=== PATIENT | female | born 1970 | race Caucasian/White ===

== ENCOUNTER 2016-06-01 10:35 | Emergency (ER) | payer OTHER ==
[2016-06-01] MEDS ORDERED: KETOROLAC 30 MG/ML 1 ML VIAL IVP STA (11:08)
[2016-06-01] MEDS ORDERED: MAG HYDROX/AL HYDROX/SIMETH 30 ML, HYOSCYAMINE ELIXIR 10 ML, CIMETIDINE HCL 300 MG, LID... PO STA ×4 (11:08)
--- NOTE | 2016-06-01 11:35 | XR ---
EXAMINATION TYPE: XR chest 2V DATE OF EXAM ORDERED: 06/01/2016 11:24 AM HISTORY: Pain. REFERENCE: None. FINDINGS: The lungs are clear. Pleural spaces are clear. Heart size is normal. IMPRESSION: NORMAL CHEST.
[2016-06-01 11:38] LABS: Basophils % (A) 1 %; CH 33.3; Eosinophils # (A) 0.1 k/uL (0-0.7); Eosinophils % (A) 2 %; HCT 40.1 % (34.0-46.0); HDW 2.94; HGB 13.8 gm/dL (11.4-16.0); Luc % (Auto) 3; Lymphocytes # (A) 1.9 k/uL (1.0-4.8); Lymphocytes % (A) 30 %; MCHC 34.4 g/dL (31.0-37.0); MCV 92.9 fL (80.0-100.0); Mean Platelet Volume 7.5; Monocytes # (A) 0.4 k/uL (0-1.0); Monocytes % (A) 5 %; Neutrophils # (A) 3.8 k/uL (1.3-7.7); Neutrophils % (A) 59 %; RBC 4.32 m/uL (3.80-5.40); WBC 6.5 k/uL (3.8-10.6); WBC (Perox) 6.54
[2016-06-01 11:48] LABS: ALT 80 U/L (9-52); AST 67 U/L (14-36); Alkaline Phosphatase 88 U/L (38-126); Anion Gap 13 mmol/L; Blood Urea Nitrogen 13 mg/dL (7-17); Calcium 9.8 mg/dL (8.4-10.2); Carbon Dioxide 24 mmol/L (22-30); Chloride 104 mmol/L (98-107); Glucose 110 mg/dL (74-99); Magnesium 1.6 mg/dL (1.6-2.3); Non-African American GFR(MDRD) >60 (>60 ml/min/1.73 sqM); Potassium 4.1 mmol/L (3.5-5.1); Sodium 141 mmol/L (137-145); Total Bilirubin 0.6 mg/dL (0.2-1.3); Total Protein 7.1 g/dL (6.3-8.2)
--- NOTE | 2016-06-01 11:50 | ED ---
Chest Pain HPI - General Chief Complaint: Chest Pain Stated Complaint: High blood pressure/chest heavy Time Seen by Provider: 06/01/16 11:03 Source: patient Mode of arrival: wheelchair Limitations: no limitations - History of Present Illness Initial Comments: This is a 45-year-old female with a history of hypertension or presents here in [facility] for chest pain. She states it is right-sided and constant. It is been present since last night and has not resolved since then. She states that it feels like an aching sensation in her right chest. She denies any cough or shortness of breath. The pain is not pleuritic and does not radiate. It is not associated with exertion. She does have a h/o GERD and thought it could be that but since it has been a few days she became worried. She states that her BP has been in the 150/80s and was concerned. She denies h/o DVT/PE. No other complaints. This patient is low risk for PE because he/she has met the following criteria Age <50 years HR <100 bpm Room Air SpO2 >95% No prior DVT/PE No recent trauma/surgery No hemoptysis No exogenous estrogen use No clinical signs of DVT - Related Data Home Medications Medication Instructions Recorded Confirmed Lisinopril [Zestril] 10 mg PO QAM 05/24/14 06/01/16 Multivitamins, Thera [Theragran] 1 tab PO DAILY 05/24/14 06/01/16 Omeprazole [PriLOSEC] 20 mg PO AC-BRKFST 05/24/14 06/01/16 Sucralfate [Carafate] 1 gm PO QAM 05/24/14 06/01/16 Zolpidem [Ambien] 5 mg PO HS 04/03/15 06/01/16 Allergies Allergy/AdvReac Type Severity Reaction Status Date / Time Sulfa (Sulfonamide AdvReac Unknown Nausea & Verified 06/01/16 11:08 Antibiotics) Vomiting Review of Systems ROS Statement: Those systems with pertinent positive or pertinent negative responses have been documented in the HPI. ROS Other: All systems not noted in ROS Statement are negative. 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 History of Any Multi-Drug Resistant Organisms: None Reported Past Surgical History: Breast Surgery, Section, Orthopedic Surgery, Tubal Ligation Additional Past Surgical History / Comment(s): BREAST IMPLANTS, LAPAROSCOPY,RT ELBOW, D&C Past Anesthesia/Blood Transfusion Reactions: No Reported Reaction Past Psychological History: No Psychological Hx Reported Smoking Status: Never smoker Past Alcohol Use History: Occasional Past Drug Use History: None Reported - Past Family History Mother Family Medical History: Hypertension, Seizure Disorder Additional Family Medical History / Comment(s): ULCERATIVE COLITIS Father Family Medical History: No Reported History Brother(s) Family Medical History: Diabetes Mellitus General Exam - General Exam Comments Initial Comments: Awake alert Appears comfortable Head: Normocephalic atraumatic Eyes: no conjunctival injection No scleral icterus EOMI Neck: No JVD Supple Heart: Regular rate rhythm normal S1-S2 no murmurs Lungs: Clear to auscultation bilaterally No wheezing No rales Abdomen: Soft nondistended nontender Extremities: Non edematous DP pulses intact Radial pulses intact Neuro: A&Ox3 No focal neurologic deficits Psych: Appropriate mood and affect[Awake alert] [Appears comfortable] Limitations: no limitations Course Vital Signs 06/01/16 06/01/16 06/01/16 10:41 11:41 11:47 Temperature 98.3 F Pulse Rate 73 67 67 Respiratory 18 18 18 Rate Blood Pressure 142/90 156/98 146/91 O2 Sat by Pulse 100 100 99 Oximetry 06/01/16 06/01/16 12:31 12:34 Temperature 98.8 F Pulse Rate 55 L Respiratory 16 Rate Blood Pressure 147/91 O2 Sat by Pulse 100 Oximetry - Reevaluation(s) Reevaluation #1: 06/01/16 11:44 EKG showing normal sinus rhythm with a rate of 64. No systemic changes or T- wave inversions. QTC is 418. Other intervals are normal. No ectopy. Chest Pain MDM - MDM Is a 45-year-old female who presents emergency department for chest discomfort. The patient was evaluated with troponin and EKG were both of which were normal. Her symptoms have been constant for over 12 hours and thus there any cardiac ischemia I would see it on blood work. She felt improved after GI cocktail and Toradol. At this time the patient has a low heart score and to follow-up as an outpatient for further workup for chest pain. I told her to continue with her GI medications and take Motrin and Tylenol as needed for pain. She can return to the emergency Department if she has worsening or changing symptoms. All questions were answered. Disposition Clinical Impression: Chest pain Disposition: HOME SELF-CARE Condition: Stable Instructions: Chest Pain (ED) Referrals: Sebastian Matos MD [Primary Care Provider] - 1-2 days
[2016-06-01 11:52] LABS: Prothrombin Time 10.3 sec (9.0-12.0)
[2016-06-01 12:32] VITALS: BP 147/91; PULSE 55; RESP 16
[2016-06-01 12:35] VITALS: TEMP 98.8
== END 2016-06-01 12:40 | disposition home or self-care (01) ==
LOC: EC 10:35
DX: R07.89 Other chest pain (principal); I10 Essential (primary) hypertension; K21.9 Gastro-esophageal reflux disease without esophagitis; Z79.899 Other long term (current) drug therapy; Z88.2 Allergy status to sulfonamides
CPT/HCPCS: 99285 ×2; 96374 ×2; 36415; 93005; 80053; 82553; 83735; 84484; 85025; 85610; 85730; 71020; J1885

== ENCOUNTER → 2017-03-09 | Outpatient (CLI) | payer OTHER ==
--- NOTE | 2017-03-10 08:04 | MM ---
Reason for exam: screening (asymptomatic). Last mammogram was performed 5 years and 3 months ago. History: Retro-pectoral implants in both breasts, 2000. Physical Findings: A clinical breast exam by your physician is recommended on an annual basis and results should be correlated with mammographic findings. MG 3D Screen Mammo Imp/Cad Bilateral CC, MLO, and ID view(s) were taken. Prior study comparison: December 03, 2011, CAD bilateral diagnostic mammogram. The breast tissue is heterogeneously dense. This may lower the sensitivity of mammography. Finding: There is a 4 mm mass located 2 cm from the nipple in the anterior position of the left breast. Bilateral breast prothesis. New finding since December 03, 2011. ASSESSMENT: Incomplete: need additional imaging evaluation, BI-RAD 0 RECOMMENDATION: Ultrasound of the left breast. [facility] will attempt to contact patient to return for ultrasound.
== END | disposition home or self-care (01) ==
LOC: RADMAMWWP 09:36
PROVIDERS: ATTEND Obstetrics & Gynecology
DX: Z12.31 Encounter for screening mammogram for malignant neoplasm of breast (principal); Z98.82 Breast implant status
CPT/HCPCS: 77063; 77067

== ENCOUNTER → 2017-03-11 | Outpatient (CLI) | payer OTHER ==
--- NOTE | 2017-03-14 07:36 | USB ---
Reason for exam: additional evaluation requested from abnormal screening. History: Retro-pectoral implants in both breasts, 2000. Physical Findings: Nurse did not find any significant physical abnormalities on exam. US Breast Workup Limited LT Left breast ultrasound includes all four quadrants, the retroareolar region and axilla. Finding demonstrates a 6 x 2 x 5mm lobular, cystic lesion at 10 o'clock and a 5 x 4 x 4mm lobular, mixed lesion at 11 o'clock. These results were verbally communicated with the patient and result sheet given to the patient on 03/11/17. ASSESSMENT: Probably benign, BI-RAD 3 RECOMMENDATION: Ultrasound of the left breast in 6 months.
== END | disposition home or self-care (01) ==
LOC: RADUSWWP 14:13
PROVIDERS: ATTEND Obstetrics & Gynecology
DX: R92.8 Other abnormal and inconclusive findings on diagnostic imaging of breast (principal)

== ENCOUNTER → 2017-10-04 | Outpatient (CLI) | payer OTHER ==
--- NOTE | 2017-10-05 15:12 | USB ---
Reason for exam: follow-up at short interval from prior study. History: Retro-pectoral implants in both breasts, 2000. Physical Findings: Nurse did not find any significant physical abnormalities on exam. US Breast LT Left complete breast ultrasound includes all four quadrants, the retroareolar region and axilla. Finding demonstrates a 0.7 x 0.3 x 0.2cm oval, cystic cluster at 10 o'clock versus 5 x 4 x 4mm previously, a 0.5 x 0.3 x 0.2cm oval, mixed lesion at 11 o'clock, a 0.3 x 0.3 x 0.2cm oval, cystic lesion at 11:30, a 0.5 x 0.5 x 0.1cm oval, cystic lesion at 11 o'clock and a 0.4 x 0.4 x 0.2cm oval, cystic cluster at 11:30, likely fibrocystic changes. Underlying breast implant. Some focal fluid along the medial implant could represent a fold or some leaking fluid. These results were verbally communicated with the patient and result sheet given to the patient on 10/04/17. ASSESSMENT: Probably benign, BI-RAD 3 RECOMMENDATION: Follow-up diagnostic mammogram of both breasts in 6 months. (left total 1 year follow up) Manage patient on a clinical basis to ensure continued integrity of the left implant.
== END | disposition home or self-care (01) ==
LOC: RADUSWWP 09:12
PROVIDERS: ATTEND Obstetrics & Gynecology
DX: R92.8 Other abnormal and inconclusive findings on diagnostic imaging of breast (principal)

== ENCOUNTER 2017-12-27 10:08 | Day surgery (SDC) | payer OTHER ==
[2017-12-23 11:01] VITALS: BMI 24.0
[2017-12-27 10:59] VITALS: TEMP 98.6
[2017-12-27] MEDS ORDERED: LIDOCAINE 1% 20 ML VIAL (10MG/ML) FOR IV START INTRADERMA ONE (11:08)
[2017-12-27] MEDS ORDERED: LACTATED RINGERS 1,000 ML IV ONE (11:08)
[2017-12-27] MEDS ORDERED: PROPOFOL 10 MG/ML 20 ML VIAL IV ONE (11:53)
--- NOTE | 2017-12-27 12:36 | P.PCN ---
Date of Procedure: 12/27/17 Procedure(s) Performed: procedure: 1. Esophagogastroduodenoscopy and biopsy. 2. Colonoscopy and biopsy. Preoperative diagnosis: Chronic reflux symptoms and diarrhea. Postoperative diagnosis: 1. Hiatal hernia with no evidence of esophagitis or complicated reflux disease. 2. Mild antral gastritis. 3. Normal colon and terminal ileum. 4. Multiple biopsies obtained from the duodenum, antrum, esophagus, terminal ileum and right colon. Preparation: HalfLytely prep. Sedation: Was provided by anesthesia. Brief clinical history: The patient is a 47-year-old female who has been troubled with diarrhea since October 15. The patient was having cramps followed by diarrhea. Stool studies were negative. Her mother had colitis. No definite dietary triggers. She has chronic reflux symptoms and currently is doing well on Zantac that she takes as needed. She has taken probiotics with gradual improvement in her diarrhea. This evaluation is to assess for complicated complicated reflux disease, celiac disease or inflammatory bowel disease. Procedure: With the patient on her left lateral decubitus position and after informed consent and adequate sedation, I passed the Olympus-GIF 160 video upper endoscope through the cricopharyngeus down the esophagus. GE junction was around 32 cm from the incisors and there was a sliding hiatal hernia but no obvious esophagitis or complicated reflux disease. The endoscope was then passed into the stomach which was insufflated with air and inspected in detail including the retroflex view in the cardia. There was some mottling and erythema but no ulcers or erosions. Pyloric channel, duodenal bulb, post bulbar area and descending duodenum was essentially within normal limits. Because of her symptoms, I obtained biopsies from the duodenum, antrum and esophagus then the endoscope was withdrawn and I proceeded with the colonoscopy. Perianal area did not show any fissures or fistulas. There were no masses felt on digital rectal examination. The Olympus CFQ 160L video colonoscope was then inserted in the rectum in the usual fashion and advanced to the cecum. I intubated the ileocecal bile and examined the terminal ileum. Terminal ileum and colon appeared healthy with no edema, erythema, friability, ulceration, exudation or spontaneous bleeding. No polyps or tumors were seen or any obvious diverticular disease. I obtained biopsies from the terminal ileum and right colon then I retroflexed the endoscope in the rectum before the endoscope was withdrawn. The patient tolerated the procedure well. Plan: The patient was reassured. Will await biopsy results and make further plans based on her course and biopsy results. We will keep you updated on her progress.
[2017-12-27 12:38] VITALS: RESP 16
[2017-12-27 12:45] VITALS: BP 128/80; PULSE 65
== END 2017-12-27 12:59 | disposition home or self-care (01) ==
LOC: ORWHC2ENDO 10:08
DX: K29.50 Unspecified chronic gastritis without bleeding (principal); K21.0 Gastro-esophageal reflux disease with esophagitis; K52.839 Microscopic colitis, unspecified; E78.5 Hyperlipidemia, unspecified; K44.9 Diaphragmatic hernia without obstruction or gangrene; Z88.2 Allergy status to sulfonamides; I10 Essential (primary) hypertension; Z79.899 Other long term (current) drug therapy
CPT/HCPCS: 88305; 88313; 45380; 43239; J2704

== ENCOUNTER → 2018-03-10 | Outpatient (CLI) | payer OTHER ==
--- NOTE | 2018-03-10 10:44 | MM ---
Reason for exam: additional evaluation requested from prior study. Last mammogram was performed 1 year ago. History: Retro-pectoral implants in both breasts, 2000. Physical Findings: Nurse did not find any significant physical abnormalities on exam. MG 3D Diag Mammo Imp W/Cad ELIE Bilateral CC, MLO, and ID view(s) were taken. Prior study comparison: March 09, 2017, bilateral MG 3d screen mammo imp/cad. December 03, 2011, CAD bilateral diagnostic mammogram. The breast tissue is heterogeneously dense. This may lower the sensitivity of mammography. No suspicious calcifications are seen. Bilateral implants are intact. These results were verbally communicated with the patient and result sheet given to the patient on 03/10/18. ASSESSMENT: Benign, BI-RAD 2 RECOMMENDATION: Routine screening mammogram of both breasts in 1 year.
== END | disposition home or self-care (01) ==
LOC: RADMAMWWP 09:29
PROVIDERS: ATTEND Obstetrics & Gynecology
DX: R92.8 Other abnormal and inconclusive findings on diagnostic imaging of breast (principal)
CPT/HCPCS: 77062; 77066

== ENCOUNTER → 2019-04-11 | Outpatient (CLI) | payer OTHER ==
--- NOTE | 2019-04-12 13:46 | MM ---
Reason for exam: screening (asymptomatic). Last mammogram was performed 1 year and 1 month ago. History: Retro-pectoral implants in both breasts, 2000. Physical Findings: A clinical breast exam by your physician is recommended on an annual basis and results should be correlated with mammographic findings. MG 3D Screen Mammo Imp/Cad Bilateral CC, MLO, and ID view(s) were taken. Prior study comparison: March 10, 2018, bilateral MG 3d diag mammo imp w/cad ELIE. March 09, 2017, bilateral MG 3d screen mammo imp/cad. The breast tissue is heterogeneously dense. This may lower the sensitivity of mammography. No suspicious abnormality. Bilateral retropectoral saline implants. No significant changes when compared with prior studies. ASSESSMENT: Negative, BI-RAD 1 RECOMMENDATION: Routine screening mammogram of both breasts in 1 year.
== END | disposition home or self-care (01) ==
LOC: RADMAMWWP 08:12
PROVIDERS: ATTEND Obstetrics & Gynecology
DX: Z12.31 Encounter for screening mammogram for malignant neoplasm of breast (principal); Z98.82 Breast implant status
CPT/HCPCS: 77063; 77067

== ENCOUNTER → 2020-08-12 | Outpatient (CLI) | payer OTHER ==
--- NOTE | 2020-08-13 13:46 | MM ---
Reason for exam: screening (asymptomatic). Last mammogram was performed 1 year and 4 months ago. History: Retro-pectoral implants in both breasts, 2001. Physical Findings: A clinical breast exam by your physician is recommended on an annual basis and results should be correlated with mammographic findings. MG 3D Screen Mammo Imp/Cad Bilateral CC, MLO, and ID view(s) were taken. Prior study comparison: April 11, 2019, bilateral MG 3d screen mammo imp/cad. March 10, 2018, bilateral MG 3d diag mammo imp w/cad ELIE. The breast tissue is heterogeneously dense. This may lower the sensitivity of mammography. Bilateral subpectoral implants redemonstrated. There is chronic nodularity in the left breast. There is no discrete abnormality. Benign bilateral axillary lymph nodes redemonstrated. ASSESSMENT: Benign, BI-RAD 2 RECOMMENDATION: Routine screening mammogram of both breasts in 1 year.
== END | disposition home or self-care (01) ==
LOC: RADMAMWWP 09:37
PROVIDERS: ATTEND Obstetrics & Gynecology
DX: Z12.31 Encounter for screening mammogram for malignant neoplasm of breast (principal)
CPT/HCPCS: 77063; 77067

== ENCOUNTER → 2021-09-15 | Outpatient (CLI) | payer OTHER ==
--- NOTE | 2021-09-16 07:46 | MM ---
Reason for Exam: Screening (asymptomatic). Last mammogram was performed 1 year(s) and 1 month(s) ago. Patient History: Menarche at age 16. First Full-Term at age 23. Hysterectomy at age 44. 2000, Bilateral Implants. Risk Values: Tressa 5 year model risk: 0.8%. NCI Lifetime model risk: 7.4%. Prior Study Comparison: 03/10/2018 Bilateral Diagnostic Mammogram, [facility]. 04/11/2019 Bilateral Screening Mammogram, [facility]. 08/12/2020 Bilateral Screening Mammogram, [facility]. Tissue Density: The breast tissue is heterogeneously dense. This may lower the sensitivity of mammography. Findings: Analyzed By CAD. Bilateral breast implants are intact. Benign calcifications left breast remain stable. There is no suspicious group of microcalcifications or new suspicious mass in either breast. Overall Assessment: Benign, BI-RAD 2 Management: Screening Mammogram of both breasts in 1 year. A clinical breast exam by your physician is recommended on an annual basis and results should be correlated with mammographic findings. Electronically signed and approved by: Presley Turner M.D. Radiologis
--- NOTE | 2021-09-16 15:21 | BD ---
EXAMINATION TYPE: Axial Bone Density DATE OF EXAM: 09/15/2021 COMPARISON: NONE CLINICAL HISTORY: 50 years year old Female. ICD-10 CODE: N95.1 Post menopausal symptoms Height: 4'11 Weight: 136 FRAX RISK QUESTIONS: Secondary Osteoporosis: RISK FACTORS HISTORY OF: Postmenopausal woman: y MEDICATIONS: Additional Medications: blood pressure, cholesterol Additional History: EXAM MEASUREMENTS: Bone mineral densitometry was performed using the [employer] System. Bone mineral density as measured about the Lumbar spine is: ----- L1-L4(G/cm2): 1.283 T Score Values are as follows: ----- L1: 1.3 ----- L2: 0.7 ----- L3: 0.9 ----- L4: 1.3 ----- L1-L4: 1.1 Bone mineral density about the R hip (g/cm2): 0.902 Bone mineral density about the L hip (g/cm2): 0.940 T Score values are as follows: -----R Neck: -1.0 -----L Neck: -0.7 -----R Total: 0.3 -----L Total: 0.6 FRAX%s: The graph provided illustrates a 4.2% chance for a major osteoporotic fx and a 0.2% chance fo r the hips probability for fx in 10 years time. IMPRESSION: Normal (Values between +1 and -1 indicate normal bone mass). Consider repeating this study in 5 year s or sooner if there is some new clinical indication. NOTE: T-SCORE=SD OF THE YOUNG ADULT MEAN.
== END | disposition home or self-care (01) ==
LOC: RADMAMWWP 13:31
PROVIDERS: ATTEND Obstetrics & Gynecology
DX: Z12.31 Encounter for screening mammogram for malignant neoplasm of breast (principal); N95.1 Menopausal and female climacteric states
CPT/HCPCS: 77063; 77067; 77080

== ENCOUNTER → 2024-02-22 | Outpatient (CLI) | payer OTHER ==
--- NOTE | 2024-02-27 10:30 | MM ---
Reason for Exam: Screening (asymptomatic). Last mammogram was performed 1 year(s) and 3 month(s) ago. Patient History: Menarche at age 16. First Full-Term at age 23. Hysterectomy at age 44. 2000, Bilateral Implants. Risk Values: Tressa 5 year model risk: 0.9%. NCI Lifetime model risk: 7.0%. Prior Study Comparison: 08/12/2020 Bilateral Screening Mammogram, [facility]. 09/15/2021 Bilateral MG 3D screen mammo imp/cad., [facility]. 11/29/2022 Bilateral MG 3D screen mammo imp/cad., [facility]. Tissue Density: The breasts are heterogeneously dense, which may obscure small masses. Findings: Analyzed By CAD. Redemonstrated retropectoral saline breast implants on both sides. Areas of asymmetric density on the right are unchanged. There is no suspicious group of microcalcifications or new suspicious mass in either breast. Overall Assessment: Benign, BI-RAD 2 Management: Screening Mammogram of both breasts in 1 year. Patient should continue monthly self-breast exams. A clinical breast exam by your physician is recommended on an annual basis. This exam should not preclude additional follow-up of suspicious palpable abnormalities. Note on Tressa scores and lifetime risk: 1. A Tressa score greater than 3% is considered moderate risk. If this is the case, consider specialist referral to assess eligibility for a risk reducing agent. 2. If overall lifetime risk for the development of breast cancer is 20% or higher, the patient may qualify for future screening with alternating mammogram and breast MRI. [facility], , 02/27/2024 10:26 AM. Electronically signed and approved by: Roxana Barker M.D. Radiologist
== END | disposition home or self-care (01) ==
LOC: RADMAMWWP 07:50
PROVIDERS: ATTEND Family Medicine
DX: Z12.31 Encounter for screening mammogram for malignant neoplasm of breast (principal); R92.333 Mammographic heterogeneous density, bilateral breasts
CPT/HCPCS: 77063; 77067